=== PATIENT | female | born 1980 | race Caucasian/White ===

== ENCOUNTER 2024-12-03 11:58 | Outpatient (AMB) | payer OTHER, SELFPAY ==
--- NOTE | 2024-12-03 12:10 | GYNCLNT_ITS ---
Allergies/Home Meds Allergies & Medications Allergies No Known Allergies Allergy (Verified 12/03/24 12:11) Medication Reconciliation norethindrone 1.5 mg-ethinyl estradiol 30 mcg(21)/iron 75 mg(7) tablet ([place] Fe 1.5/30 (28)) 1 tab PO QDAY #84 tabs 11/19/24 [Rx Confirmed 12/03/24] Intake Visit Data Collection New Patient or Established: Established Patient (seen at [facility] within 3 years) Reason for Visit:: Patient requested a TeleMed visit to review Pap smear result Consent obtained for Telemed Visit: Yes Seen by Clinical Staff ONLY (RN/MA): No Metal Moulder'S Assistant Required: No Do You Feel Safe at Home: Yes Authorities Contacted: N/A PCP or OBGYN visit in last 3 months: Yes Date of Last PCP or OBGYN visit: 11/19/24 Hx Now: No Are you currently on any form of Control: No Pain Present Currently: No Pain Scale Used: Yu-Delaney/Numerical Pain scale:: 0 Smoking Status Smoking Status: Never smoker For Telemed visit only Telemed Video/Phone Visit: Yes Verbal consent obtained for Telemed visit?: Yes Verbal Consent witness name: Deidre CAIO Telemed Video/Phone visit w/Clinical Staff: 5-10 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 1. Little interest or pleasure in doing things: not at all 2. Feeling down, depressed, or hopeless: not at all Total score: 0 PHQ-9 3. Trouble falling or staying asleep, or sleeping too much: Not at all 4. Feeling tired or having little energy: Not at all 5. Poor appetite or overeating: Not at all 6. Feeling bad about yourself - or that you are a failure or have let yourself or your family down: Not at all 7. Trouble concentrating on things, such as reading the newspaper or watching television: Not at all 8. Moving or speaking so slowly that other people could have noticed? - Or the opposite - being so fidgety or restless that you have been moving around a lot more than usual: not at all 9. Thoughts that you would be better off or of hurting yourself in some way: Not at all Total score: 0 If you checked off any problems, how difficult have these problems made it for you to do your work, take care of things at home, or get along with other people?: not difficult at all Source: Developed by Drs. Benito Chamorro, Veronica Mauricio, Eddie Prado and colleagues, with an educational kika from [employer]. Social History Living Situation History Lives With: Family Housing: House Housing Other:: Pt has a 4 y/o daughter. She is a teacher at [employer]. Spouse flys [employer] Tobacco History Smoking Status: Never smoker Second Hand Smoke Exposure: No Alcohol History Alcohol Intake: Never Substance Use History Substance Use: NONE Domestic Abuse History Do You Feel Safe at Home: Yes Past Medical History Past Medical History Have you ever been diagnosed with any of the following: Neurological Problems Cerebrovascular Accident (CVA): No Transient Ischemic Attacks (TIA): No Dementia: No Alzheimer's Disease: No Parkinson's Disease: No Brain Tumor: No Meningitis: No Seizures: No Epilepsy: No Multiple Sclerosis: No Cerebral Palsy: No Amyotrophic Lateral Sclerosis (ALS/Sammi Gehrig's): No Guillain-[place] Syndrome: No Cardiology Problems Myocardial Infarction: No Cardiac Arrhythmia: No Atrial Fibrillation: No Angina: No Heart Murmur: No Coronary Artery Disease: No Atherosclerotic Heart Disease: No Peripheral Vascular Disease: No Hypercholesterolemia: No Hypertension: No Respiratory Problems Chronic Obstructive Pulmonary Disease (COPD): No Asthma: No Bronchitis: No Emphysema: No Pneumonia: No Pulmonary Fibrosis: No Tuberculosis: No Pulmonary Embolism: No Pulmonary Edema: No Sleep Apnea: No CPAP Dependent: No Respiratory Aspiration: No Dyspnea: No Orthopnea: No Hx Cough: No Cough: No Wheezing: No Smoking: No Smoking Cessation Counseling: No Smoking Exposure: No Tobacco Use: No Stomache/Intestinal Problems Liver Cancer: No Hepatitis: No Cirrhosis: No Pancreatic Cancer: No Pancreatitis: No Celiac Disease: No Gall Bladder Disease: No Gastrointestinal Bleed: No Esophageal Varices: No Sweeney's Esophagus: No Colitis: Yes Ulcerative Colitis: No Diverticulitis: No Diverticulosis: No Ulcer: No Colorectal Cancer: No Irritable Bowel: Yes Crohn's Disease: No Obstructive Bowel: No Genital/Urinary Problems Renal Disease: No Kidney Stones: No Polycystic Kidney Disease: No Neurogenic Bladder: No Inguinal Hernia: No Dialysis: No Reproductive Problems Breast Cancer: No Endometriosis: No Fibroids: No Genital Herpes: No Gonorrhea: No Pelvic Inflammatory Disease: No Polycystic Ovarian Syndrome: No Previous Pregnancies: Yes ( x 1 in 2019) Syphilis: No Uterine Prolapse: No Musculoskeletal Problems Muscular Dystrophy: No Myasthenia Gravis: No Marfan's Syndrome: No Bone Cancer: No Arthritis: No Rheumatoid Arthritis: No Osteoporosis: No Degenerative Disk Disease: No Gout: No Carpal Tunnel Syndrome: No Fibromyalgia: No Fractures: No Head,Eye,Nose,Throat Problems Cataracts: No Glaucoma: No Blind: No Retinal Detachment: No Macular Degeneration: No Chronic Ear Infections: No Deafness: No Eye Prosthesis: No Endocrine Problems Diabetes Mellitus Type 1: No Diabetes Mellitus Type 2: No Hypoglycemia: No Cabot's Syndrome: No Hitterdal's Disease: No Hyperthyroidism: No Hypothyroidism: No Thyroid Cancer: No Blood Problems Anemia: No Leukemia: No Hemophilia: No Thalassemia: No Sickle Cell Disease: No Clotting Problems: No Psychologic Problems Schizophrenia: No Recreational Drug Use: No Bipolar Disorder: No Depression: No Anxiety: No Behavior Problems: No Self-Mutilation: No Attention Deficit Disorder: No Attention Deficit Hyperactivity Disorder: No Depression: No Post Traumatic Stress Disorder: No Eating Disorder: No Other Problems Hospitalization: Yes (For section) Down Syndrome: No Autism: No Developmental Delay: No Cosmetic Surgery: No Shingles: No Falls: No Blood Transfusions: No Blood Transfusion Reaction: No Anesthesia Reactions: No Organ Transplant: No Chemotherapy: No Surgical History Angioplasty: No Appendectomy: No Bariatric Surgery: No Breast Surgery: No History of Present Illness HPI Narrative The patient is a 44-year-old -0-0-1 who requested a TeleMed visit to discuss her recent Pap results. The patient had a lot of questions when Deidre Lang called her back about her Pap smear and requested a TeleMed visit. Patient states that she had her HPV vaccine in the past. She is concerned because she had a maternal grandmother with uterine cancer and a paternal grandmother with breast cancer. She used to see me in [place] and has a history of abnormal Paps in the past. I do not know if she has had repeat Pap smears or biopsies as I do not have records. The patient's current Pap is normal, she is however positive for HPV but negative for HPV 16 and 18. I did spend about 10 minutes discussing Pap smears, annual screening,and cotesting for HPV. I told the patient she might have been exposed to HPV years ago. That she is not positive for HPV 16 and 18 and these are responsible for about 80% of cervical cancers worldwide. I told her I would usually repeat a Pap smear in 1 year with these type of results. This might vary based on her history of Pap smears. I do need her to release her records from [place] so I can look at her Pap smears to decide if a colposcopy is warranted. Patient seems reassured after this discussion and we will release her records to me. She has already tried to release them so once they are released she should call me and we will can look at those. We will call her back once we review all her records. Assessment & Plan Diagnosis / Problem List (1) Cervical high risk HPV (human papillomavirus) test positive: Status: Acute Assessment and Plan: Pap screen negative. HPV 16 and 18 negative. Will review her other Pap smears and either repeat a Pap smear in 1 year or possibly sooner or perform colposcopy depending on her other Pap smear results. Office Procedures OB Clinic LOC & Office Proc's Nursing/Assessment Patient Status: Established Patient OB Clinic Nursing Assessment: BP Monitoring, Medication Reconciliation and Update PMH in EMR OB Clinic Coordination of Care: Consent,records obtained, informed consent and Results/Orders obtained Established Patient Charge Established Patient Point Assignment: 40 Established Patient Point Charge: EP Level 2 (40-75) Telehealth If patient is seen using Teleconference methods, complete New/Est section, but DO NOT thierry points only thierry the correct Telemed visit type Telemed Phone/Video with patient at home & Dr,PA,FLUID DESIGNER: Yes
== END 2024-12-03 12:11 | disposition home or self-care (01) ==
LOC: HODSOBC 11:58
PROVIDERS: PCP Family Medicine; Referring Provider Family Medicine; Supervising Provider Obstetrics & Gynecology; Visit Provider Obstetrics & Gynecology
DX: Z01.411 Encounter for gynecological examination (general) (routine) with abnormal findings (principal); R87.810 Cervical high risk human papillomavirus (HPV) DNA test positive; Z80.49 Family history of malignant neoplasm of other genital organs; Z80.3 Family history of malignant neoplasm of breast
CPT/HCPCS: 99212; G0463